=== PATIENT | male | born 1965 | race Caucasian/White ===

== ENCOUNTER 2018-10-22 13:23 | Inpatient (IN) | payer OTHER ==
[~2018-10-22] VITALS: Ht 175.3 cm; Wt 76.9 kg
[2018-10-22] MEDS ORDERED: SOD CHLORIDE 0.9% 500 ML IV STA (13:44)
[2018-10-22] MEDS ORDERED: PANTOPRAZOLE IV 80 MG in SOD CHLORIDE 0.9% 100 ML IV STA (13:44)
[2018-10-22] MEDS ORDERED: FAMOTIDINE 20 MG INJ IV STA (13:44)
[2018-10-22] MEDS ORDERED: LORAZEPAM 2 MG INJ IV ONE (14:00)
[2018-10-22] MEDS ORDERED: METO-448 PO (14:10)
[2018-10-22] MEDS ORDERED: AMLO5TAB4 PO (14:10)
[2018-10-22] MEDS ORDERED: PANT40TA3 PO (14:11)
[2018-10-22] MEDS ORDERED: HYDR-3980 PO (14:12)
[2018-10-22] MEDS ORDERED: OMEP20CA16 PO (14:13)
[2018-10-22] MEDS ORDERED: ALPR2TAB PO (14:13)
--- NOTE | 2018-10-22 14:15 | ERD ---
ER Documentation Chief Complaint Chief Complaint sent by dr cortés - abdominal , tarry stools ( gi bleed) HPI This is a 53-year-old male with a past medical history of anxiety and hypertension who presents to the emergency department complaining of dark tarry stools for roughly 1 month. 5 weeks ago the patient been started on 800 mg of Motrin which she states he has been taking every 6-8 hours for analgesic control after he had blunt chest trauma. He had been evaluated at [facility] for this trauma as a light stand fell on him at work. The patient indicated that the obtained a CT of his chest chest radiograph and there is no evidence of pneumothorax. The patient also indicated that 10 days ago he had a syncope episode and had been admitted to [facility]. He been subsequently discharged. The patient indicates that he went to see his new physician today Dr. Cortés. Dr. Cortés performed an EKG stating he was tachycardic and had placed the patient on outpatient Protonix amlodipine metoprolol which the patient needed prescriptions for. The patient denies a history of alcohol abuse and states his last drink was 3 days ago. He states he drinks socially however his states that she feels he drinks very heavily. ROS All systems reviewed and are negative except as per history of present illness. Medications Home Meds Reported Medications Omeprazole* (Omeprazole*) 20 Mg Capsule., 20 MG PO DAILY, #30 CAP 10/22/18 Alprazolam* (Xanax*) 2 Mg Tablet, 2 MG PO Q12 PRN for ANXIETY, TAB pt hasent started taking yet he is taking 1mg 10/22/18 Hydrocodone/Acetaminophen ([place] 10-325 Tablet) 1 Each Tablet, 1 EACH PO Q8 PRN for SEVERE PAIN LEVEL 7-10, TAB pt hasent started taking yet 10/22/18 Pantoprazole* (Protonix*) 40 Mg Tablet., 40 MG PO BID, TAB pt hasent started taking yet 10/22/18 Amlodipine Besylate* (Norvasc*) 5 Mg Tablet, 5 MG PO DAILY, TAB 10/22/18 Metoprolol Tartrate* (Lopressor*) 25 Mg Tab, 25 MG PO BID, #60 TAB pt hasnt started taking yet 10/22/18 Allergies Allergies: Coded Allergies: No Known Allergy (Unverified , 10/22/18) Physical Exam Vitals Vital Signs Date Temp Pulse Resp B/P (MAP) Pulse Ox O2 O2 Flow FiO2 Time Delivery Rate 10/22/18 99.0 120 24 168/113 100 13:25 (131) Physical Exam Constitutional:Well-developed. Well-nourished. HEENT:Normocephalic. Atraumatic.Pupils were equal round reactive to light. Moist mucous membranes.No tonsillar exudates. No conjunctival pallor Neck: No nuchal rigidity. No lymphadenopathy. No posterior cervical spine tenderness or step-offs. Respiratory: Not using accessory muscles of respiration.Lungs were clear to auscultation bilaterally. No rhonchi. No rales. No wheezing. Cardiovascular: Regular rate regular rhythm.No murmurs. No rubs were appreciate d.S1, S2 normal. Distal pulses are palpable 2+ bilaterally. GI: Abdomen was soft. Nontender. Non Distended. No pulsatile abdominal masses or bruits. No rebound. No guarding. Bowel sounds were present and normal. Rectal: No gross blood per rectum. Muscle skeletal: Full range of motion of both the upper and lower extremities bilaterally.Normal muscle tone.No assymetrical calf tenderness or swelling. Skin: No petechia, no purpura. No lesions on the palms or the soles of the feet. No maculopapular rash. NEURO: Patient was alert, awake, orientated x3.No facial droop. Gait observed and normal with no ataxia.Speech had regular rate and rhythm. Asterixis. Result Diagram: 10/22/18 1403 10/22/18 1403 Results 24 hrs Laboratory Tests Test 10/22/18 14:03 White Blood Count 3.5 10^3/ul Red Blood Count 3.43 10^6/ul Hemoglobin 11.9 g/dl Hematocrit 34.5 % Mean Corpuscular Volume 100.6 fl Mean Corpuscular Hemoglobin 34.7 pg Mean Corpuscular Hemoglobin Concent 34.5 g/dl Red Cell Distribution Width 12.7 % Platelet Count 93 10^3/UL Mean Platelet Volume 10.8 fl Immature Granulocytes % 0.300 % Neutrophils % 68.3 % Lymphocytes % 18.0 % Monocytes % 10.9 % Eosinophils % 1.4 % Basophils % 1.1 % Nucleated Red Blood Cells % 0.0 /100WBC Immature Granulocytes # 0.010 10^3/ul Neutrophils # 2.4 10^3/ul Lymphocytes # 0.6 10^3/ul Monocytes # 0.4 10^3/ul Eosinophils # 0.1 10^3/ul Basophils # 0.0 10^3/ul Nucleated Red Blood Cells # 0.0 10^3/ul Prothrombin Time 12.4 Sec Prothrombin Time Ratio 1.0 INR International Normalized Ratio 0.91 Activated Partial Thromboplast Time 26.0 Sec Sodium Level 142 mmol/L Potassium Level 3.7 mmol/L Chloride Level 101 mmol/L Carbon Dioxide Level 26 mmol/L Anion Gap 15 Blood Urea Nitrogen 8 mg/dl Creatinine 0.62 mg/dl Est Glomerular Filtrat Rate mL/min > 60 mL/min Glucose Level 166 mg/dl Calcium Level 9.5 mg/dl Total Bilirubin 1.0 mg/dl Direct Bilirubin 0.00 mg/dl Indirect Bilirubin 1.0 mg/dl Aspartate Amino Transf (AST/SGOT) 297 IU/L Alanine Aminotransferase (ALT/SGPT) 226 IU/L Alkaline Phosphatase 64 IU/L Troponin I < 0.012 ng/ml Total Protein 7.6 g/dl Albumin 4.3 g/dl Globulin 3.30 g/dl Albumin/Globulin Ratio 1.30 Amylase Level 74 U/L Lipase 361 U/L Ethyl Alcohol Level 16.0 mg/dl Current Medications Medications Dose Sig/Brenda Start Time Status Last (Trade) Ordered Route PRN Stop Time Admin Dose Reason Admin Sodium 500 ml @ Q1H STAT 10/22/18 DC 10/22/18 Chloride 500 mls/hr IV 13:44 14:18 10/22/18 14:43 Famotidine 20 mg ONCE STAT 10/22/18 DC 10/22/18 (Pepcid Iv) IV 13:44 14:18 10/22/18 13:46 Pantoprazole 100 ml @ ONCE STAT 10/22/18 10/22/18 80 mg/Sodium 10 mls/hr IV 13:44 14:30 Chloride 10/22/18 23:43 Lorazepam 1 mg ONCE ONCE 10/22/18 DC 10/22/18 (Ativan) IV 14:00 14:18 10/22/18 14:01 Magnesium 1,015.2 ml Q2H2M STAT 10/22/18 DC Sulfate 2 @ 500 mls/ IV 14:17 gm/ hr 10/22/18 16:18 Multivitamins 10 ml/Thiamine HCl 100 mg/Folic Acid 1 mg/Sodium Chloride 1,000 ml @ Q10H IV 10/22/18 Dextrose/Sodi 100 mls/hr 17:00 um Chloride Amlodipine 5 mg DAILY PO 10/23/18 Besylate 09:00 (Norvasc) Lorazepam 1 mg Q4 PRN IV 10/22/18 (Ativan) anxiety 17:00 Ondansetron 4 mg ER BRIDGE 10/22/18 HCl (Zofran PRN IV 18:00 Inj) NAUSEA/VOMITI 10/23/18 17:59 NG 650 mg ER BRIDGE 10/22/18 Acetaminophen PRN PO 18:00 (Tylenol .MILD PAIN 10/23/18 17:59 Tab) 1-3 OR TEMP Procedures/MDM The patient presented to the emergency department with a presentation of upper gastrointestinal bleeding. My differential diagnosis included but was not limited to peptic ulcer disease, gastric or esophageal erosions, gastritis, esophageal varices, Mariam-Ledezma tear, tumor or arteriovenous malformations. The patient has been placed on chronic monitor continuous pulse oximetry and IV access was established by nursing staff. 12 Lead EKG tracing ordered and reviewed by myself showed: Sinus tachycardia 115 bpm and no arrhythmia. MS interval normal. QRS duration normal. No ST segment elevation No ST segment depression. No changes consistent with acute ischemia. Significant amount of artifact in lead V5 due to the patient's tremors. The patient denied a history of heavy alcohol abuse. However his who I spoke with alone indicated she feels he secretly has a heavy area of alcohol use. His clinical presentation was concerning for possible alcohol withdrawal as the patient has thrombocytopenia and transaminitis with AST greater than ALT. The patient was given a banana bag and Ativan with resolution of the S3 6. He will be admitted with a GI consult as he also is taking a significant amount of NSAIDs and did have a fecal occult blood test that was positive with melanotic stools. He will be admitted to the renal physician Dr. Quesada. Departure Diagnosis: Primary Impression: GI bleed due to NSAIDs Additional Impressions: Alcohol withdrawal Complication of substance-induced condition: uncomplicated Qualified Codes: F10.230 - Alcohol dependence with withdrawal, uncomplicated Thrombocytopenia Condition: Serious PATTI MAX MD Oct 22, 2018 14:15
[2018-10-22] MEDS ORDERED: MAGNESIUM SULFATE 2 GM, MULTIVITAMINS 10 ML, THIAMINE 100 MG, FOLIC ACID 1 MG in SOD CH... IV STA (14:17)
[2018-10-22] MEDS: DEXTROSE 5%-0.45% NACL 1,000 ML IV SCH (17:00)
[2018-10-22] MEDS ORDERED: ONDANSETRON 4 MG INJ IV PRN (18:00)
[2018-10-22] MEDS ORDERED: ACETAMINOPHEN 325 MG TAB PO PRN (18:00)
[2018-10-22] MEDS: LORAZEPAM 2 MG INJ IV PRN (19:16)
[2018-10-23] VITALS (8 sets, daily range): BP systolic 152–183; BP diastolic 99–109; PULSE 71–111; RESP 18; Ht 175.3 cm; Wt 76.9 kg
[2018-10-23] MEDS: DEXTROSE 5%-0.45% NACL 1,000 ML IV SCH ×3 (03:00→23:00)
[2018-10-23] MEDS: morphine 2 MG INJ IV PRN ×3 (08:32→16:46)
[2018-10-23] MEDS: AMLODIPINE 5 MG TAB PO SCH (08:32)
[2018-10-23] MEDS: POTASSIUM CHLORIDE 100 ML IVPB SCH ×2 (08:39→10:54)
--- NOTE | 2018-10-23 09:48 | HP ---
DATE OF ADMISSION: 10/22/2018 CHIEF COMPLAINT: Anxiety. HISTORY OF PRESENT ILLNESS: A 53-year-old male with history of hypertension and anxiety disorder pre sents to Emergency Room with complaint of tarry, black stools on and off for the last week prior to a dmission. The patient denies nausea, vomiting, or hematemesis. No bright red blood per rectum. No abdominal pain. The patient denies history of heavy alcohol abuse, however he reported drinking 2-3 days prior to admission. According to his significant other, the patient may be a heavy drinker. Initial evaluation revealed hemoglobin of 11.9. The patient was tachycardic on presentation. Stool was guaiac positive. REVIEW OF SYSTEMS: He denies chest pain or shortness of breath. PAST MEDICAL HISTORY: 1. Hypertension. 2. Anxiety disorder. MEDICATIONS: Prior to admission: 1. Protonix. 2. Norvasc. 3. Lopressor. 4. Ativan. 5. [place]. SOCIAL HISTORY: Patient reports having some type of work injury about 1 month prior to admission wit h blunt trauma to chest area. He has been taking NSAID medications on a regular basis since then. PHYSICAL EXAMINATION: GENERAL: Well-developed, well-nourished male who is in no apparent distress. VITAL SIGNS: Stable. He is afebrile. HEENT: Extraocular muscles intact. Pupils equal, round, reactive to light bilaterally. . Nec k is supple. No JVD, no carotid bruits. LUNGS: Clear to auscultation bilaterally. CARDIAC: Tachycardia. No murmurs, rubs or gallops. ABDOMEN: Soft, nontender, nondistended. Normoactive bowel sounds. EXTREMITIES: No clubbing, cyanosis or edema. NEUROLOGIC: Grossly nonfocal. ASSESSMENT: 1. A 53-year-old male presenting with one week history of tarry, black stool. Rule out upper GI ble ed, especially in light of heavy non-steroidal anti-inflammatory drug use and possible alcohol abuse. 2. Hypertension. 3. Anxiety disorder. PLAN: Place in tele observation. Keep patient n.p.o. IV Protonix drip. Monitor hemoglobin. GI co nsultation was requested. Dictated By: RICARDA DANIELLE/DANNY Conf#: [id number] DID#: [id number]
--- NOTE | 2018-10-23 10:48 | CONS ---
Assessment/Plan Assessment/Plan Hospital Course (Demo Recall) Summary Assessment and Plan: Assessment: Melena -PUD versus gastritis versus other History of excessive nonsteroidal anti-inflammatory drug use Pancytopenia -Borderline macrocytic indices Elevated LFTs Current smoker Questionable excessive alcohol use- patient denies -elevate ETOH level on admission HTN History of diverticulitis Plan: Clear liquid diet PPI twice daily EGD tomorrow Endoscopy - risks/benefits/alternatives/indications of procedure and sedation/anesthesia discussed with patient who states understading and gives informed consent to proceed. PARQ held and questions were answered. We will obtain abdominal ultrasound for elevated LFTs to assess for hepatocellular disease Patient seen in collaboration with Dr. Pagan CC: JEWELL PAGAN MD ; Consultation Date/Type/Reason Admit Date/Time Oct 22, 2018 at 17:39 Date of Consultation: Oct 23, 2018 Type of Consult GI Date/Time of Note DATE: 10/23/18 TIME: 10:47 Hx of Present Illness This is a 53-year-old male with past medical history of hypertension and diverticulitis who was recently involved in an accident causing chest pain patient was seen by his primary care physician and placed on ibuprofen. Patient states he has been taking at least 4 tablets of ibuprofen per day for the past 4 weeks when he started to complain of upper abdominal pain and noticed melena he was seen by his PCP who instructed him to come to the ER. With work-up in the ED patient found to have mild normocytic anemia and elevated LFTs. Chest x-ray is no acute pulmonary abnormality at time evaluation patient continues to complain of some upper abdominal pain without further evidence of overt signs of GI bleed. Given clinical picture we discussed plan for abdominal ultrasound to further evaluate the liver given elevated LFTs and plan for EGD tomorrow to rule out PUD versus gastritis versus other. I reviewed risk/benefits of EGD and sedation patient verbalized understanding and is agreeable to proceed with EGD. Review of Systems: A 12 system, review was conducted and is negative except as noted in the HPI or here. Past Medical History Home Meds Reported Medications Omeprazole* (Omeprazole*) 20 Mg Capsule., 20 MG PO DAILY, #30 CAP 10/22/18 Alprazolam* (Xanax*) 2 Mg Tablet, 2 MG PO Q12 PRN for ANXIETY, TAB pt hasent started taking yet he is taking 1mg 10/22/18 Hydrocodone/Acetaminophen ([place] 10-325 Tablet) 1 Each Tablet, 1 EACH PO Q8 PRN for SEVERE PAIN LEVEL 7-10, TAB pt hasent started taking yet 10/22/18 Pantoprazole* (Protonix*) 40 Mg Tablet.dr, 40 MG PO BID, TAB pt hasent started taking yet 10/22/18 Amlodipine Besylate* (Norvasc*) 5 Mg Tablet, 5 MG PO DAILY, TAB 10/22/18 Metoprolol Tartrate* (Lopressor*) 25 Mg Tab, 25 MG PO BID, #60 TAB pt hasnt started taking yet 10/22/18 Medications Current Medications Dextrose/Sodium Chloride 1,000 ml @ 100 mls/hr Q10H IV Last administered on at 03:00; Admin Dose 100 MLS/HR; Start 10/22/18 at 17:00 Amlodipine Besylate (Norvasc) 5 mg DAILY PO Last administered on 10/23/18at 08:32; Admin Dose 5 MG; Start 10/23/18 at 09:00 Lorazepam (Ativan) 1 mg Q4 PRN IV anxiety Last administered on 10/22/18at 19:16; Admin Dose 1 MG; Start 10/22/18 at 17:00 Ondansetron HCl (Zofran Inj) 4 mg ER BRIDGE PRN IV NAUSEA/VOMITING; Start 10/22/18 at 18:00; Stop 10/23/18 at 17:59 Acetaminophen (Tylenol Tab) 650 mg ER BRIDGE PRN PO .MILD PAIN 1-3 OR TEMP; Start 10/22/18 at 18:00; Stop 10/23/18 at 17:59 Potassium Chloride 100 ml @ 50 mls/hr Q2H IVPB Last administered on 10/23/18at 08:39; Admin Dose 50 MLS/HR; Start 10/23/18 at 08:30; Stop 10/23/18 at 12:29 Morphine Sulfate (morphine) 2 mg Q3H PRN IV SEVERE PAIN LEVEL 7-10 Last administered on 10/23/18at 08:32; Admin Dose 2 MG; Start 10/23/18 at 08:30 Allergies: Coded Allergies: No Known Allergy (Unverified , 10/22/18) Social History Smoking Status: Never smoker Exam/Review of Systems Exam Vitals Vital Signs Date Temp Pulse Resp B/P (MAP) Pulse Ox O2 O2 Flow FiO2 Time Delivery Rate 10/23/18 76 08:21 10/23/18 98.1 18 183/105 100 Room Air 07:40 (131) Exam PHYSICAL EXAMINATION: GENERAL: Well developed, well nourished, alert & oriented x 3, in no acute distress SKIN: No lesions HEAD: Normocephalic, atraumatic, no tenderness. EYES: Pupils equal reactive to light and accommodation, no discharge. EARS/NOSE AND THROAT: Ears normal, nose normal. NECK: Supple, no masses. CHEST: Inspection within normal limits. CARDIOVASCULAR: Heart: Regular rate and rhythm GASTROINTESTINAL AND LIVER: Abdomen: Soft, epigastric tenderness, non-distended, no hernias, no masses, no organomegaly, no ascites, no guarding, no rebound tenderness, normoactive bowel sounds. Rectal: Deferred. Results Result Diagram: 10/23/18 0514 10/23/18 0514 Results 24hrs Laboratory Tests Test 10/22/18 14:03 10/23/18 05:14 White Blood Count 3.5 L 2.7 #L Red Blood Count 3.43 L 3.30 L Hemoglobin 11.9 L 11.3 L Hematocrit 34.5 L 33.2 L Mean Corpuscular Volume 100.6 100.6 Mean Corpuscular Hemoglobin 34.7 H 34.2 H Mean Corpuscular Hemoglobin Concent 34.5 34.0 Red Cell Distribution Width 12.7 12.1 Platelet Count 93 L 75 L Mean Platelet Volume 10.8 H 10.9 H Immature Granulocytes % 0.300 0.400 Neutrophils % 68.3 57.3 Lymphocytes % 18.0 25.1 Monocytes % 10.9 12.4 H Eosinophils % 1.4 4.1 Basophils % 1.1 0.7 Nucleated Red Blood Cells % 0.0 0.0 Immature Granulocytes # 0.010 0.010 Neutrophils # 2.4 1.5 L Lymphocytes # 0.6 L 0.7 L Monocytes # 0.4 0.3 Eosinophils # 0.1 0.1 Basophils # 0.0 0.0 Nucleated Red Blood Cells # 0.0 0.0 Prothrombin Time 12.4 Prothrombin Time Ratio 1.0 INR International Normalized Ratio 0.91 Activated Partial Thromboplast Time 26.0 Sodium Level 142 139 Potassium Level 3.7 3.4 L Chloride Level 101 100 Carbon Dioxide Level 26 29 Anion Gap 15 H 10 # Blood Urea Nitrogen 8 6 L Creatinine 0.62 0.58 L Est Glomerular Filtrat Rate mL/min > 60 > 60 Glucose Level 166 101 # Calcium Level 9.5 9.0 Total Bilirubin 1.0 Direct Bilirubin 0.00 Indirect Bilirubin 1.0 Aspartate Amino Transf (AST/SGOT) 297 H Alanine Aminotransferase (ALT/SGPT) 226 H Alkaline Phosphatase 64 Troponin I < 0.012 Total Protein 7.6 Albumin 4.3 Globulin 3.30 H Albumin/Globulin Ratio 1.30 Amylase Level 74 Lipase 361 H Ethyl Alcohol Level 16.0 H Medications Medication Current Medications Dextrose/Sodium Chloride 1,000 ml @ 100 mls/hr Q10H IV Last administered on 10/23/18 03:00; Admin Dose 100 MLS/HR; Start 10/22/18 at 17:00 Amlodipine Besylate (Norvasc) 5 mg DAILY PO Last administered on 10/23/18 08:32; Admin Dose 5 MG; Start 10/23/18 at 09:00 Lorazepam (Ativan) 1 mg Q4 PRN IV anxiety Last administered on 10/22/18 19:16; Admin Dose 1 MG; Start 10/22/18 at 17:00 Ondansetron HCl (Zofran Inj) 4 mg ER BRIDGE PRN IV NAUSEA/VOMITING; Start 10/22/18 at 18:00; Stop 10/23/18 at 17:59 Acetaminophen (Tylenol Tab) 650 mg ER BRIDGE PRN PO .MILD PAIN 1-3 OR TEMP; Start 10/22/18 at 18:00; Stop 10/23/18 at 17:59 Potassium Chloride 100 ml @ 50 mls/hr Q2H IVPB Last administered on 10/23/18 08:39; Admin Dose 50 MLS/HR; Start 10/23/18 at 08:30; Stop 10/23/18 at 12:29 Morphine Sulfate (morphine) 2 mg Q3H PRN IV SEVERE PAIN LEVEL 7-10 Last administered on 10/23/18 08:32; Admin Dose 2 MG; Start 10/23/18 at 08:30 JANEY PHIPPS Oct 23, 2018 10:48
[2018-10-23] MEDS: LORAZEPAM 2 MG INJ IV PRN ×2 (10:54→20:47)
--- NOTE | 2018-10-23 11:18 | PN ---
Date/Time of Note Date/Time of Note DATE: 10/23/18 TIME: 11:15 Subjective Doing well. No abdominal pain. He had vomiting of bilious material. No hematemesis Objective Vitals Vital Signs Date Temp Pulse Resp B/P (MAP) Pulse Ox O2 O2 Flow FiO2 Time Delivery Rate 10/23/18 76 08:21 10/23/18 98.1 18 183/105 100 Room Air 07:40 (131) Clear to auscultation bilaterally Regular rate and rhythm Soft nontender nondistended normoactive bowel sounds No edema Nonfocal Results Result Diagram: 10/23/1814 10/23/18513 Medications Medications Current Medications Dextrose/Sodium Chloride 1,000 ml @ 100 mls/hr Q10H IV Last administered on 10/23/18 03:00; Admin Dose 100 MLS/HR; Start 10/22/18 at 17:00 Amlodipine Besylate (Norvasc) 5 mg DAILY PO Last administered on 10/23/18 08:32; Admin Dose 5 MG; Start 10/23/18 at 09:00 Lorazepam (Ativan) 1 mg Q4 PRN IV anxiety Last administered on 10/23/18 10:54; Admin Dose 1 MG; Start 10/22/18 at 17:00 Ondansetron HCl (Zofran Inj) 4 mg ER BRIDGE PRN IV NAUSEA/VOMITING; Start 10/22/18 at 18:00; Stop 10/23/18 at 17:59 Acetaminophen (Tylenol Tab) 650 mg ER BRIDGE PRN PO .MILD PAIN 1-3 OR TEMP; Start 10/22/18 at 18:00; Stop 10/23/18 at 17:59 Potassium Chloride 100 ml @ 50 mls/hr Q2H IVPB Last administered on 10/23/18 10:54; Admin Dose 50 MLS/HR; Start 10/23/18 at 08:30; Stop 10/23/18 at 12:29 Morphine Sulfate (morphine) 2 mg Q3H PRN IV SEVERE PAIN LEVEL 7-10 Last administered on 10/23/18 08:32; Admin Dose 2 MG; Start 10/23/18 at 08:30 VTE Prophylaxis SCD applied (from Ns): Yes Lines/Catheters IV Catheter Type: Saline Lock Horowitz in Place: No Assessment/Plan Assessment/Plan 53-year-old male with anemia and melena. Rule out upper GI bleed Heavy NSAID use in the last several weeks prior to admission History of alcohol abuse Anxiety disorder Proceed with EGD Continue Protonix drip Patient was asked to avoid NSAIDs and alcohol Case was discussed with GI physician home based assistant RICARDA WORTHINGTON MD Oct 23, 2018 11:18
[2018-10-23] MEDS ORDERED: PANTOPRAZOLE (EC) 40 MG TAB PO ONE (16:51)
[2018-10-23] MEDS: PANTOPRAZOLE (EC) 40 MG TAB PO SCH (16:52)
[2018-10-24] VITALS (15 sets, daily range): BP systolic 133–174; BP diastolic 89–101; PULSE 74–111; RESP 14–22
[2018-10-24] MEDS: morphine 2 MG INJ IV PRN ×2 (01:52→04:59)
[2018-10-24] MEDS: DEXTROSE 5%-0.45% NACL 1,000 ML IV SCH ×2 (05:00→09:00)
[2018-10-24] MEDS: PANTOPRAZOLE (EC) 40 MG TAB PO SCH ×2 (05:01→17:57)
[2018-10-24] MEDS: AMLODIPINE 5 MG TAB PO SCH (08:27)
[2018-10-24] MEDS: LORAZEPAM 2 MG INJ IV PRN (08:53)
[2018-10-24] MEDS ORDERED: PANT40TA3 PO (11:06)
--- NOTE | 2018-10-24 11:08 | PDOCDIS ---
Discharge Instructions CONDITION [id number] Patient Condition: [id number] Good HOME CARE INSTRUCTIONS: [id number] Diet Instructions: [id number] FOLLOW UP/APPOINTMENTS Follow-up Plan pcp [address] Pagan call for appt OTHER ORDERS: Other Orders: avoid NSAIDS completely RICARDA WORTHINGTON MD Oct 24, 2018 11:08
--- NOTE | 2018-10-24 11:11 | PN ---
Date/Time of Note Date/Time of Note DATE: 10/24/18 TIME: 11:08 Subjective Doing well. No complaint of abdominal pain. No hematemesis. No bright red blood per rectum or melena. Objective Vitals Vital Signs Date Temp Pulse Resp B/P (MAP) Pulse Ox O2 O2 Flow FiO2 Time Delivery Rate 10/24/18 82 09:09 10/24/18 98.8 18 148/101 99 07:32 (117) 10/23/18 Room Air 15:40 Intake and Output 10/23/18 10/23/18 10/24/18 1515:00 23:00 07:00 IntakeIntake Total 640 ml 400 ml 1075 ml OutputOutput Total 120 ml BalanceBalance 640 ml 400 ml 955 ml Clear to auscultation bilaterally Regular rate and rhythm Soft nontender nondistended normoactive bowel sounds No edema Nonfocal Results Result Diagram: 10/24/1826 10/23/18 0514 Medications Medications Current Medications Dextrose/Sodium Chloride 1,000 ml @ 100 mls/hr Q10H IV Last administered on 10/24/18at 05:00; Admin Dose 100 MLS/HR; Start 10/22/18 at 17:00 Amlodipine Besylate (Norvasc) 5 mg DAILY PO Last administered on 10/23/18at 08:32; Admin Dose 5 MG; Start 10/23/18 at 09:00 Lorazepam (Ativan) 1 mg Q4 PRN IV anxiety Last administered on 10/24/18at 08:53; Admin Dose 1 MG; Start 10/22/18 at 17:00 Morphine Sulfate (morphine) 2 mg Q3H PRN IV SEVERE PAIN LEVEL 7-10 Last administered on 10/24/18at 04:59; Admin Dose 2 MG; Start 10/23/18 at 08:30 Pantoprazole (Protonix Tab) 40 mg BID@06,18 PO Last administered on 10/23/18at 16:52; Admin Dose 40 MG; Start 10/23/18 at 18:00 VTE Prophylaxis Risk score (from Nsg)>0 risk: 1 SCD applied (from Nsg): No SCD contraindication: low risk/ambulating Lines/Catheters IV Catheter Type: Saline Lock Horowitz in Place: No Assessment/Plan Assessment/Plan 53-year-old male with anemia and guaiac positive stool Recent history of heavy NSAID use. Rule out peptic ulcer disease Anemia, stable Thrombocytopenia History of alcohol abuse Proceed with EGD Continue Protonix Discharge planning following EGD if okay with RICARDA BARTHOLOMEW MD Oct 24, 2018 11:11
--- NOTE | 2018-10-24 15:54 | PREAC ---
Date/Time of Note Date/Time of Note DATE: 10/24/18 TIME: 15:53 Anesthesia Eval and Record Evaluation Time Pre-Procedure Interview DATE: 10/24/18 TIME: 15:53 Age 53 Sex male NPO: 8 hrs Preoperative diagnosis melena Planned procedure EGD Past Medical History Past Medical History: Includes Cardio: HTN Psych: Anxiety Surgery & Anesthesia Issues No known issue Meds Anticoagulation: No Beta Babatunde within 24 hr: No Reason Beta Babatunde not given: Pt. not on B-Babatunde Active Scripts Pantoprazole* (Protonix*) 40 Mg Tablet., 40 MG PO DAILY for 30 Days, TAB pt hasent started taking yet Prov:RICARDA WORTHINGTON MD 10/24/18 Reported Medications Alprazolam* (Xanax*) 2 Mg Tablet, 2 MG PO Q12 PRN for ANXIETY, TAB pt hasent started taking yet he is taking 1mg 10/22/18 Hydrocodone/Acetaminophen (Bruni 10-325 Tablet) 1 Each Tablet, 1 EACH PO Q8 PRN for SEVERE PAIN LEVEL 7-10, TAB pt hasent started taking yet 10/22/18 Amlodipine Besylate* (Norvasc*) 5 Mg Tablet, 5 MG PO DAILY, TAB 10/22/18 Metoprolol Tartrate* (Lopressor*) 25 Mg Tab, 25 MG PO BID, #60 TAB pt hasnt started taking yet 10/22/18 Discontinued Reported Medications Omeprazole* (Omeprazole*) 20 Mg Capsule.dr, 20 MG PO DAILY, #30 CAP 10/22/18 Current Medications Dextrose/Sodium Chloride 1,000 ml @ 100 mls/hr Q10H IV Last administered on 10/24/18at 05:00; Admin Dose 100 MLS/HR; Start 10/22/18 at 17:00 Amlodipine Besylate (Norvasc) 5 mg DAILY PO Last administered on 10/23/18at 08:32; Admin Dose 5 MG; Start 10/23/18 at 09:00 Lorazepam (Ativan) 1 mg Q4 PRN IV anxiety Last administered on 10/24/18at 08:53; Admin Dose 1 MG; Start 10/22/18 at 17:00 Morphine Sulfate (morphine) 2 mg Q3H PRN IV SEVERE PAIN LEVEL 7-10 Last ad ministered on 10/24/18at 04:59; Admin Dose 2 MG; Start 10/23/18 at 08:30 Pantoprazole (Protonix Tab) 40 mg BID@06,18 PO Last administered on 10/23/18at 16:52; Admin Dose 40 MG; Start 10/23/18 at 18:00 Meds reviewed: Yes Allergies Coded Allergies: No Known Allergy (Unverified , 10/22/18) Allergies Reviewed: Yes Labs/Studies Labs Reviewed: Reviewed by anesthesiologist Result Diagram: 10/24/18 0526 10/23/18 0514 Laboratory Tests 10/24/18 05:26 test: N/A Pre-procedure Exam Last vitals Vital Signs Date Temp Pulse Resp B/P (MAP) Pulse Ox O2 O2 Flow FiO2 Time Delivery Rate 10/24/18 99.5 74 19 174/90 99 15:34 (118) 10/23/18 Room Air 15:40 Airway: Adequate mouth opening, Adequate thyromental dist Mallampati: Mallampati II Teeth: Normal Lung: Normal Heart: Normal ASA Physical Status ASA physical status: 2 Emergency: None Planned Anesthetic General/MAC: Mask Planned Pain Management Parenteral pain med Pre-operative Attestations Prior to commencing anesthesia and surgery, the patient was re-evaluated, there was verification of: *The patient's identity *The results of appropriate recent lab work and preoperative vital signs *The above evaluation not changing prior to induction *Anesthetic plan, risk benefits, alternative and complications discussed with patient/family; questions answered; patient/family understands, accepts and wishes to proceed. OSCAR NI MD Oct 24, 2018 15:54
[2018-10-24] MEDS ORDERED: ONDANSETRON 4 MG INJ IV PRN (16:00)
[2018-10-24] MEDS ORDERED: hydrALAzine 20 MG INJ IV PRN (16:00)
[2018-10-24] MEDS ORDERED: LABETALOL HCL 20MG INJ IV PRN (16:00)
[2018-10-24] MEDS ORDERED: LIDOCAINE 2% (SDV) 5 ML INJ ONE (18:43)
[2018-10-24] MEDS ORDERED: PROPOFOL 20 ML ONE ×2 (18:43→18:57)
[2018-10-24] MEDS ORDERED: FENTAnyl 50 MCG/ML VIAL ONE (18:50)
--- NOTE | 2018-10-24 19:17 | PAC ---
Date/Time of Note Date/Time of Note DATE: 10/24/18 TIME: 19:17 Post-Anesthesia Notes Post-Anesthesia Note Last documented vital signs Vital Signs Date Temp Pulse Resp B/P (MAP) Pulse Ox O2 O2 Flow FiO2 Time Delivery Rate 10/24/18 99.2 83 20 168/101 98 Room Air 17:25 (123) Activity: WNL Respiratory function: WNL Cardiovascular function: WNL Mental status: Baseline Pain reasonably controlled: Yes Hydration appropriate: Yes Nausea/Vomiting absent: Yes Comments BP: 135/93 HR: 99 RR: 16 T: 98 SaO2: 97% OSCAR NI MD Oct 24, 2018 19:17
== END 2018-10-24 20:06 | disposition home or self-care (01) | DRG 378 ==
LOC: E/R 13:23 → 6WM 17:39
PROVIDERS: ADMIT Internal Medicine; ATTEND Internal Medicine
PROC: 0DB68ZX Excision of Stomach, Via Natural or Artificial Opening Endoscopic, Diagnostic (ICD-10-PCS; 2018-10-24)
PROC: 0DB58ZX Excision of Esophagus, Via Natural or Artificial Opening Endoscopic, Diagnostic (ICD-10-PCS; principal; 2018-10-24 19:30)
DX: K92.1 Melena (principal); D61.818 Other pancytopenia; D69.6 Thrombocytopenia, unspecified; D64.9 Anemia, unspecified; F41.9 Anxiety disorder, unspecified; F10.10 Alcohol abuse, uncomplicated; I10 Essential (primary) hypertension; F17.200 Nicotine dependence, unspecified, uncomplicated; Y90.0 Blood alcohol level of less than 20 mg/100 ml; K29.70 Gastritis, unspecified, without bleeding; T39.315A Adverse effect of propionic acid derivatives, initial encounter; Y92.019 Unspecified place in single-family (private) house as the place of occurrence of the external cause
CPT/HCPCS: 36415; 71045; 76705; 80048; 80053; 80307; 82150; 83690; 84484; 85025; 85610; 85730; 86850; 86900; 86901; 88305; 88312; 88313; 93005; 96374; 96375; C9113; J2060; J2270; J3010; J3411; J3475; J3480; J7030; J7040; J7042